=== PATIENT | female | born 1940 | race Caucasian/White ===

== ENCOUNTER 2017-01-28 15:15 | Emergency (ER) | payer MEDICARE, OTHER ==
[2017-01-28 16:02] VITALS: BP 119/62
[2017-01-28] MEDS ORDERED: Sodium Chloride 0.9% 500 ML IV ONE (17:33)
[2017-01-28] MEDS ORDERED: Sodium Chloride 0.9% 10 ML Syringe FLUSH PRN (17:33)
--- NOTE | 2017-01-28 17:34 | EDM.PDOC ---
ED HPI GENERAL MEDICAL PROBLEM - General Chief Complaint: Chest Pain Stated Complaint: DIZZINESS HEART PROBLEMS Time Seen by Provider: 01/28/17 17:23 Source of Information: Reports: Patient, RN Notes Reviewed - History of Present Illness INITIAL COMMENTS - FREE TEXT/NARRATIVE: 77 year old female with intemitant weakness and dizziness for the past 4 days. Became severely lightheaded on one occasion today, felt as though she were about to pass out. Has not been having chest pain. No cough, fever, chills or dyspnea. She did have some diarrhea last week associated with her celiac disease but that is all better. Hx of Htn, Hx of previous PA with a stent placed about 7 yrs ago. Chest Pain Score (Numeric/FACES): 3 - Related Data Allergies Allergy/AdvReac Type Severity Reaction Status Date / Time atorvastatin calcium Allergy Nausea Verified 01/28/17 15:52 [From Lipitor] bacitracin Allergy Rash Verified 01/28/17 15:52 [From Neosporin ([id number])] bacitracin zinc Allergy Rash Verified 01/28/17 15:52 [From Neosporin ([id number])] latex Allergy Rash Verified 01/28/17 15:52 mineral oil [From Aquaphor] Allergy Rash Verified 01/28/17 15:52 neomycin sulfate Allergy Rash Verified 01/28/17 15:52 [From Neosporin ([id number])] niacin Allergy Rash Verified 01/28/17 15:52 petrolatum,hydrophilic Allergy Rash Verified 01/28/17 15:52 [From Aquaphor] polymyxin B Allergy Rash Verified 01/28/17 15:52 [From Neosporin ([id number])] polymyxin B sulfate Allergy Rash Verified 01/28/17 15:52 [From Polysporin] rosuvastatin calcium Allergy Leg Cramps Verified 01/28/17 15:52 [From Crestor] Sulfa (Sulfonamide Allergy Rash Verified 01/28/17 15:52 Antibiotics) zolpidem tartrate Allergy Hallucinati Verified 01/28/17 15:52 [From Ambien] ons Home Meds: Home Meds Aspirin [Halfprin] 81 mg PO DAILY 02/25/15 [History] Carvedilol [Coreg] 3.125 mg PO DAILY 02/25/15 [History] Levothyroxine [Synthroid] 44 mcg PO DAILY 02/25/15 [History] Pravastatin [Pravachol] 80 mg PO BEDTIME 02/25/15 [History] Valsartan 80 mg PO DAILY 04/25/16 [History] Past Medical History HEENT History: Reports: Cataract, Glaucoma Cardiovascular History: Reports: High Cholesterol, Hypertension, PA, Stents Other Cardiovascular History: LED Respiratory History: Reports: Bronchitis, Recurrent Gastrointestinal History: Reports: Celiac Disease, GERD Other Gastrointestinal History: ciliac disease [employer] History: Reports: Musculoskeletal History: Reports: Back Pain, Chronic Neurological History: Reports: Migraines Endocrine/Metabolic History: Reports: Hypothyroidism Hematologic History: Reports: Anemia, Blood Transfusion(s), Iron Deficiency - Infectious Disease History Infectious Disease History: Reports: Chicken Pox, Measles, Mumps, Shingles - Past Surgical History HEENT Surgical History: Reports: Tonsillectomy Cardiovascular Surgical History: Reports: Carotid Stents GI Surgical History: Reports: Appendectomy, Cholecystectomy, Colonoscopy Female Surgical History: Reports: Hysterectomy Musculoskeletal Surgical History: Reports: Other (See Below) Other Musculoskeletal Surgeries/Procedures:: 3 surgeries to lower back. Social & Family History - Family History GI: Reports: GI bleed - Tobacco Use Smoking Status *Q: Never Smoker Second Hand Smoke Exposure: No - Caffeine Use Caffeine Use: Reports: Coffee - Alcohol Use Days Per Week of Alcohol Use: 7 Number of Drinks Per Day: 1 Total Drinks Per Week: 7 - Recreational Drug Use Recreational Drug Use: No ED ROS GENERAL - Review of Systems Review Of Systems: See Below Constitutional: Reports: Diaphoresis (mild, gone). Denies: Fever, Chills HEENT: Reports: No Symptoms Respiratory: Denies: Shortness of Breath, Pleuritic Chest Pain Cardiovascular: Denies: Chest Pain GI/Abdominal: Reports: Diarrhea (gone). Denies: Abdominal Pain, Nausea, Vomiting Musculoskeletal: Denies: Neck Pain, Shoulder Pain, Back Pain, Joint Pain Skin: Reports: No Symptoms Neurological: Reports: Dizziness. Denies: Numbness, Tingling, Trouble Speaking ED EXAM, DIZZINESS - Physical Exam Exam: See Below General Appearance: Alert, No Apparent Distress Eye Exam: Bilateral Eye: PERRL Nose: Normal Inspection Throat/Mouth: Normal Inspection, Normal Oropharynx Head Exam: Atraumatic. No: Facial Swelling Neck: Supple, Full Range of Motion Respiratory/Chest: No Respiratory Distress, Lungs Clear, Normal Breath Sounds Cardiovascular: Regular Rate, Rhythm GI/Abdominal: Soft, Non-Tender. No: Guarding Neurological: Alert, Normal Gait, No Motor/Sensory Deficits, Oriented x 3 Extremities: Normal Inspection. No: Pedal Edema, Leg Pain Skin Exam: Warm, Dry, Normal Color EKG INTERPRETATION EKG Date: 01/28/17 Rhythm: NSR P-Wave: Present QRS: Normal ST-T: Normal Course - Vital Signs Last Recorded V/S: Last Vital Signs Temp 97.5 F 01/28/17 15:45 Pulse 58 L 01/28/17 15:45 Resp 14 01/28/17 15:45 BP 119/62 01/28/17 15:45 Pulse Ox 96 01/28/17 15:45 - Orders/Labs/Meds Orders: Active Orders 24 hr Category Date Time Status EKG 12 Lead [EKG Documentation Completion] [] STAT Care 01/28/17 17:01 Active Peripheral IV Care [RC] . DIRECTED Care 01/28/17 17:33 Active Sodium Chloride 0.9% [Saline Flush] Med 01/28/17 17:33 Active 10 ml FLUSH ASDIRECTED PRN Peripheral IV Insertion Adult [OM.PC] Stat Oth 01/28/17 17:33 Ordered Medication Orders Sodium Chloride (Saline Flush) 10 ml FLUSH ASDIRECTED PRN PRN Reason: Keep Vein Open Last Admin: 01/28/17 18:10 Dose: 10 ml Labs: Laboratory Tests 01/28/17 01/28/17 Range/Units 16:05 16:05 WBC 5.68 (3.98-10.04) K/mm3 RBC 4.44 (3.98-5.22) M/mm3 Hgb 13.1 (11.2-15.7) gm/L Hct 38.7 (34.1-44.9) % MCV 87.2 (79.4-94.8) fl MCH 29.5 (25.6-32.2) pg MCHC 33.9 (32.2-35.5) g/dl RDW Std Deviation 41.5 (36.4-46.3) fL Plt Count 227 (182-369) K/mm3 MPV 9.9 (9.4-12.3) fl Neut % (Auto) 63.8 (34.0-71.1) % Lymph % (Auto) 22.5 (19.3-51.7) % Menard % (Auto) 10.7 (4.7-12.5) % Eos % (Auto) 2.3 (0.7-5.8) Baso % (Auto) 0.5 (0.1-1.2) % Neut # (Auto) 3.62 (1.56-6.13) K/mm3 Lymph # (Auto) 1.28 (1.18-3.74) K/mm3 Menard # (Auto) 0.61 H (0.24-0.36) K/mm3 Eos # (Auto) 0.13 (0.04-0.36) K/mm3 Baso # (Auto) 0.03 (0.01-0.08) K/mm3 Sodium 141 (136-145) mEq/L Potassium 4.2 (3.5-5.1) mEq/L Chloride 105 (98-107) mEq/L Carbon Dioxide 29 (21-32) mEq/L Anion Gap 11.2 (5-15) BUN 19 H (7-18) mg/dL Creatinine 1.0 (0.55-1.02) mg/dL Est Cr Clr Drug Dosing TNP Estimated GFR (MDRD) 54 (>60) mL/min BUN/Creatinine Ratio 19.0 H (14-18) Glucose 106 (83-115) mg/dL Calcium 9.4 (8.5-10.1) mg/dL Total Bilirubin 0.5 (0.2-1.0) mg/dL AST 24 (15-37) U/L ALT 28 (14-59) U/L Alkaline Phosphatase 59 (46-116) U/L Troponin I < 0.017 (0.00-0.056) ng/mL Total Protein 7.1 (6.4-8.2) g/dl Albumin 3.6 (3.4-5.0) g/dl Globulin 3.5 gm/dL Albumin/Globulin Ratio 1.0 (1-2) Meds: Medications Generic Name Dose Route Start Last Admin Trade Name Freq PRN Reason Stop Dose Admin Sodium Chloride 10 ml 01/28/17 17:33 01/28/17 18:10 Saline Flush FLUSH 10 ml ASDIRECTED PRN Administration Keep Vein Open Discontinued Medications Generic Name Dose Route Start Last Admin Trade Name Jose PRN Reason Stop Dose Admin Sodium Chloride 500 mls @ 999 mls/hr 01/28/17 17:33 01/28/17 18:09 Normal Saline IV 01/28/17 18:03 999 mls/hr .BOLUS ONE Administration - Re-Assessments/Exams Free Text/Narrative Re-Assessment/Exam: 01/28/17 19:12 multiple low BP readings on arrival, mid 90's to low 100's lying, did improve after 500 cc NS, labs are good, discharge instr. as documented. Departure - Departure Time of Disposition: 18:47 Disposition: Home, Self-Care 01 Condition: Fair Clinical Impression: Hypotension due to medication - Discharge Information Instructions: Hypotension, [id number] Referrals: Marly Sanders MD [Primary Care Provider] - Forms: ED Department Discharge Additional Instructions: decrease your valsartin to 40 mg daily for now, you can cut your 80 mg tabs in half and take 1/2 tablet daily. Do no take your coreg tomorrow and than resume as previously prescribed. Get a BP unit and try check your BP and heart rate once or twice daily. Keep a log for Dr Sanders. Plan to see Dr Sanders in about 1 to 2 weeks, call for appt., return to ED if sx worsening in any way. - My Orders Last 24 Hours: My Active Orders 01/28/17 17:01 EKG 12 Lead [EKG Documentation Completion] [RC] STAT 01/28/17 17:33 Peripheral IV Care [RC] . DIRECTED Sodium Chloride 0.9% [Saline Flush] 10 ml FLUSH ASDIRECTED PRN Peripheral IV Insertion Adult [OM.PC] Stat - Assessment/Plan Last 24 Hours: My Active Orders 01/28/17 17:01 EKG 12 Lead [EKG Documentation Completion] [RC] STAT 01/28/17 17:33 Peripheral IV Care [RC] . DIRECTED Sodium Chloride 0.9% [Saline Flush] 10 ml FLUSH ASDIRECTED PRN Peripheral IV Insertion Adult [OM.PC] Stat
== END 2017-01-28 19:05 | disposition home or self-care (01) ==
LOC: JD.ED 15:15
DX: I95.2 Hypotension due to drugs (principal); I10 Essential (primary) hypertension; I25.2 Old myocardial infarction; E78.00 Pure hypercholesterolemia, unspecified; K21.9 Gastro-esophageal reflux disease without esophagitis; E03.9 Hypothyroidism, unspecified; Z86.2 Personal history of diseases of the blood and blood-forming organs and certain disorders involving the immune mechanism; Z95.5 Presence of coronary angioplasty implant and graft; Z90.49 Acquired absence of other specified parts of digestive tract; Z90.710 Acquired absence of both cervix and uterus; Z98.890 Other specified postprocedural states; Z79.82 Long term (current) use of aspirin; Z79.899 Other long term (current) drug therapy; Z88.1 Allergy status to other antibiotic agents; Z88.2 Allergy status to sulfonamides; Z88.8 Allergy status to other drugs, medicaments and biological substances
CPT/HCPCS: 36415; 80053; 84484; 85025; 93005; 96360; 99285; J7040; J7050; 99284

== ENCOUNTER 2021-12-20 20:38 | Emergency (ER) | payer MEDICARE, OTHER ==
[2021-12-20 20:51] VITALS: BP 112/69; PULSE 67
[2021-12-20] MEDS ORDERED: Alum Hydrox/Mag Hydrox/Simeth 30 ML, Lidocaine 2% 15 ML PO STA ×2 (21:13)
== END 2021-12-20 23:35 | disposition home or self-care (01) ==
LOC: JD.ED 20:38
DX: R07.89 Other chest pain (principal); I25.10 Atherosclerotic heart disease of native coronary artery without angina pectoris; E78.00 Pure hypercholesterolemia, unspecified; I10 Essential (primary) hypertension; I25.2 Old myocardial infarction; E03.9 Hypothyroidism, unspecified; Z88.8 Allergy status to other drugs, medicaments and biological substances; Z88.1 Allergy status to other antibiotic agents; Z91.040 Latex allergy status; Z88.6 Allergy status to analgesic agent; Z88.2 Allergy status to sulfonamides; Z79.899 Other long term (current) drug therapy; Z79.82 Long term (current) use of aspirin; Z86.16 Personal history of COVID-19; Z90.49 Acquired absence of other specified parts of digestive tract; Z90.710 Acquired absence of both cervix and uterus
CPT/HCPCS: 36415; 71046; 80053; 83735; 84484; 85025; 85379; 93005; 99285; A9270; 93010; 99284